=== PATIENT | male | born 1965 | race Caucasian/White ===

== ENCOUNTER → 2018-02-22 07:24 | Outpatient (CLI) | payer BC ==
[~2018-02-22] VITALS: Ht 175.3 cm; Wt 104.5 kg
--- NOTE | ~2018-02-22 | HEMODYNAMI ---
PATIENT:JONO YUNG MEDICAL RECORD: [id number] : 63 LOCATION:[facility] ADMISSION DATE: 02/22/18 Generatedon:02/22/20189:53 Patient name: JONO YUNG Patient #: [id number] SSN: : 1 Date of study: 02/22/2018 Page: Of Hemodynamic Procedure Report Patient Data Patient Demographics Procedure consent was obtained First Name: JONO Gender: Male Last Name: DILSHAD : 1965 [facility] Initial: CHANG Age: 52 year(s) Patient #: [id number] Race: Additional ID: [id number] Contact details [address]: [address] [place] [address] State: [place] City: [place] Zip code: [address] Past Medical History Allergies: No known allergies Admission Admission Data Admission Date: 02/22/2018 Admission Time: 7:24 Lab Results Lab Result Date: 02/22/2018 Lab Result Time: 0:00 Biochemistry Name Units Result Min Max BUN mg/dl 27 --(----)-* 7 18 Creatinine mg/dl 1.5 --(----)-* 0.6 1.3 CBC Name Units Result Min Max Hemoglobin g/dl 11.5 *-(----)-- 13.5 17.5 Procedure Procedure Types Cath Procedure Diagnostic Procedure [facility] w/Coronaries Procedure Description Procedure Date Procedure Date: 02/22/2018 Procedure Start Time: 9:46 Procedure End Time: 9:52 Procedure Staff Name Function William Montalvo RN Bindery Leadperson Stephanie Quigley RT Monitor Michael Rodriguez RN Nurse Chito Benjamin MD Performing Physician Hever Jackson RT Scrub Procedure Data Cath Procedure Fluoroscopy Diagnostic fluoroscopy Total fluoroscopy Time: 1 time: 1 min min Diagnostic fluoroscopy Total fluoroscopy dose: 558 dose: 558 mGy mGy Contrast Material Contrast Material Type Amount (ml) Isovue 300 49 Entry Location Entry Primary Successful Side Size Upsize Upsize Entry Closure Rubio ccessful Closure Location (Fr) 1 (Fr) 2 (Fr) Remarks Device Remarks Radial Right 6 Fr Mechanical artery Short Compression Estimated blood loss: 5 ml Diagnostic catheters Device Type Used For End Catheter Placement DIAGNOSTIC [place] 110cm 5 Procedure Fr catheter ([id number]) Procedure Medications Medication Administration Route Dosage 0.9% NaCl I.V. 100 ml/hr Oxygen etCO2 Nasal cannula 2 l/min Heparin Flush Bag added to field 2 bags (1000units/500ml NS) Lidocaine 2% added to field 20 Radial Cocktail added to field 1 syringe (Verapomil 2mg/Nitro 400mcg/Heparin 1500units) Versed I.V. 2 mg Fentanyl I.V. 100 mcg Versed I.V. 1 mg Hemodynamics Rest HGB: 11.5 (g/dl) Heart Rate: 71 (bpm) Snapshots Pre Cath Intra NCS Post Cath Vital Signs Time Heart Resp SPO2 etCO2 NIBP Rhythm Pain Sedation Rate (ipm) (%) (mmHg) (mmHg) Status Level (bpm) 9:41:02 70 14 94 0 134/74(98) NSR 0 (11) 10(A) , No pain 9:45:47 67 15 88 0.7 119/67(84) NSR 0 (11) 10(A) , No pain 9:50:28 68 12 96 44.4 102/52(73) NSR 0 (11) 10(A) , No pain Medications Time Medication Route Dose Verified Delivered Reason Notes Ef fectiveness by by 9:25:04 0.9% NaCl I.V. 100 Michael Michael Per ml/hr Lorigan Lorigan physician RN RN 9:25:16 Oxygen etCO2 2 l/min Michael Michael Per Nasal Lorigan Lorigan physician cannula RN RN 9:25:33 Heparin Flush added 2 bags Michael Michael used for Bag to Lorigan Lorigan procedure (1000units/500ml field RN RN NS) 9:25:46 Lidocaine 2% added 20ml Michael Michael for local to vial Lorigan Lorigan anesthetic field RN RN 9:28:02 Radial Cocktail added 1 Michael Michael used for (Verapomil to syringe Lorigan Lorigan procedure 2mg/Nitro field RN RN 400mcg/Heparin 1500units) 9:42:07 Versed I.V. 2 mg Michael Michael for Lorigan Lorigan sedation RN RN 9:42:20 Fentanyl I.V. 100 mcg Michael Michael for Lorigan Lorigan sedation RN RN 9:46:29 Versed I.V. 1 mg Michael Michael for Lorigan Lorigan sedation RN it applications manager Log Time Note 9:09:21 William Montalvo RN sent for patient. Start room use. 9:09:22 Time tracking: Regular hours (M-F 7:00 - 5:00) 9:09:27 Plan of Care:Hemodynamics will remain stable., Cardiac rhythm will remain stable., Comfort level will be maintained., Respiratory function will remain adequate., Patient/ family verbilizes understanding of procedure., Procedure tolerated without complication., Recovers from procedure without complications.. 9:09:29 Signed procedure consent form obtained from patient. 9:09:46 H&P Date Dictated: 02/20/2018 Within 30 days and on chart., H&P Addendum completed by physician on day of procedure. (MUST COMPLETE FOR ALL OUTPATIENTS). 9:09:54 Patient allergic to No known allergies 9:12:44 Patient received from Pre/Post Procedure Room to CCL 1 Alert and oriented. Tansferred to table in Supine position. 9:12:46 Warm blankets applied, and margarito hugger turned on for patient comfort. 9:12:47 Correct patient and procedure confirmed by team. 9:12:53 ECG and BP/O2 sat monitors applied to patient. 9:24:27 Vital chart was started 9:24:28 Baseline sample Acquired. 9:24:31 Rhythm: sinus rhythm 9:24:32 Full Disclosure recording started 9:24:32 Pre-procedure instructions explained to patient. 9:24:33 Pre-op teaching completed and patient verbalized understanding. 9:24:34 Family in patients room. 9:24:35 Patient NPO since Midnight. 9:24:36 Is the patient allergic to Iodine/contrast media? No. 9:24:39 Is patient on blood thinner?No 9:24:40 Patient diabetic? Yes. 9:24:41 If diabetic: On Metformin? Yes 9:24:44 If on Metformin: Last Dose? 02/20/2018 9:24:50 Previous problem with sedation/anesthesia? No ? 9:24:51 Snore? Yes 9:24:52 Sleep apnea? No 9:24:53 Deviated septum? No 9:24:54 Opens mouth fully? Yes 9:24:54 Sticks out tongue? Yes 9:24:56 Airway obstruction? No ? 9:24:58 Dentures? No ? 9:25:00 Modified Nolan's test Ulnar < 7 seconds 9:25:03 Patient pain scale 0/10 ?. 9:25:04 0.9% NaCl 100 ml/hr I.V. was administered by Michael Rodriguez RN; Per physician; 9:25:16 Oxygen 2 l/min etCO2 Nasal cannula was administered by Michael Rodriguez RN; Per physician; 9:25:21 IV patent on arrival in left hand with 0.9% NaCl at [facility]. 9:25:25 Lab results completed and on chart. 9:25:33 Heparin Flush Bag (1000units/500ml NS) 2 bags added to field was administered by Michael Rodriguez RN; used for procedure; 9:25:44 Right Radial & Right Groin area was prepped with chlora-prep and draped in sterile fashion 9:25:45 Alarms reviewed by R. N. 9:25:45 Sharps counted by scrub and verified by R.N. 9:25:46 Lidocaine 2% 20ml vial added to field was administered by Michael Rodriguez RN; for local anesthetic; 9:25:55 Use device set Radial Dx or PCI 9:25:59 ACIST Syringe (31095) opened to sterile field. 9:26:00 Bag Decanter () opened to sterile field. 9:26:01 ACIST Manifold (19019) opened to sterile field. 9:26:02 ACIST Hand Control (45962) opened to sterile field. 9:26:16 Tegaderm 4 x 4 (1626W) opened to sterile field. 9:26:20 Medline Cath Pack ([id number]) opened to sterile field. 9:26:20 DIAGNOSTIC WIRE .035 260cm J wire (581020) opened to sterile field. 9:26:21 MBrace Wrist Support ([id number]) opened to sterile field. 9:26:24 SHEATH 6Fr Prelude Radial ([id number]) opened to sterile field. 9:28:02 Radial Cocktail (Verapomil 2mg/Nitro 400mcg/Heparin 1500units) 1 syringe added to field was administered by Michael Rodriguez RN; used for procedure; ::30 Lab Result : Creatinine 1.5 mg/dl :: Lab Result : BUN 27 mg/dl :: Lab Result : Hemoglobin 11.5 g/dl 9:30:16 Zero performed for pressure channel P1 9:34:58 Zero performed for pressure channel P1 9:35:05 Zero performed for pressure channel P1 ::57 --------ALL STOP TIME OUT------ ::57 Final Timeout: patient, procedure, and site verified with staff and physician. All members of the team are in agreement. 9:41:00 Right Radial & Right Groin site verified by team. 9:41:05 Physical assessment completed. ASA score P 2 - A patient with mild systemic disease as per Chito Benjamin MD. 9:41:08 Sedation plan: IV Moderate Sedation Medication:Versed, Fentanyl 9:42:07 Versed 2 mg I.V. was administered by Michael Rodriguez RN; for sedation; 9:42:20 Fentanyl 100 mcg I.V. was administered by Michael Rodriguez RN; for sedation; 9:45:42 Procedure started. 9:46:29 Versed 1 mg I.V. was administered by Michael Rodriguez RN; for sedation; 9:46:31 Local anesthetic to right radial artery with Lidocaine 2% by Chito Benjamin MD.INITIAL ACCESS ONLY 9:47:31 A 6 Fr Short sheath was inserted into the Right Radial artery 9:47:38 A DIAGNOSTIC [place] 110cm 5 Fr catheter (308132) was advanced over the wire and used for Procedure. 9:47:43 LV gram done using PAUL 9:47:46 Injector settings: Ml/sec: 7, Volume: 15, 9:47:56 EF : 55 % 9:48:37 LCA angiography performed. 9:49:31 RCA angiography performed. 9:49:33 Catheter removed. 9:49:47 Procedure ended.(Physican Out) 9:49:56 TR BAND Standard ([id number]) opened to sterile field. 9:50:06 Sheath removed intact; hemostasis achieved with Mechanical Compression to the Right Radial artery. 9:50:49 Fluoroscopy time 01.00 minutes. :50:56 Fluoroscopy dose: 558 mGy 9:50:56 Flurop Dose total: 558 9:51:00 Contrast amount:Isovue 300 49ml. 9:51:02 Sharps counted by scrub and verified by R.N. 9:51:47 Post procedure rhythm: unchanged. 9:51:49 Estimated blood loss: 5 ml 9:51:50 Post procedure instruction explained to patient.Patient verbalizes understanding. 9:51:51 Patient needs reinforcement of post procedure teaching. 9:52:19 TR band inflated with 10cc of air. 9:52:26 Post-procedure physical assessment completed. ASA score P 2 - A patient with mild systemic disease as per Chito Benjamin MD. 9:52:30 Procedure and supply charges have been captured, reviewed, submitted and are correct. 9:52:38 Vital chart was stopped 9:52:38 See physician's report for complete and final results. 9:52:40 Report given to Pre/Post Procedure Room. 9:52:43 Patient transfered to Pre/Post Procedure Room with Bed. 9:52:45 Procedure ended. 9:52:45 Full Disclosure recording stopped 9:52:48 End room use (Document Last) Device Usage Item Name Manufacture Quantity Catalog Number Hospital Part Current M inimal Lot# / Charge Number Stock Stock Serial# Code ACIST Syringe Acist 1 18034 701447 057103 076041 2 0 (84502) Medical Systems Inc Bag Decanter Microtek 1 2001S 870397 28461 119341 5 (2001S) Medical Inc. ACIST Manifold Acist 1 36574 150286 346272 763257 5 (95113) Medical Systems Inc ACIST Hand Acist 1 21193 287364 756148 137887 5 Control (69779) Medical Systems Inc Tegaderm 4 x 4 3M 1 1626W 201838 715863 085840 5 (1626W) Medline Cath Cardinal 1 [id number] 854181 54861 973174 5 Pack Health ([id number]) DIAGNOSTIC WIRE St Audi 1 901084 590235 216388 467222 3 0 .035 260cm J wire (337438) MBrace Wrist Advanced 1 140-0250-00 273838 96476 266875 5 Support Vascular ([id number]) Dynamics SHEATH 6Fr Merit 1 [id number] 426413 953331 932995 5 Prelude Radial Medical ([id number]) DIAGNOSTIC Terumo 1 40-2165 195949 497672 620248 5 [place] 110cm 5 Fr catheter (731660) TR BAND Terumo 1 [id number] 192397 049983 741284 4 0 Standard ([id number]) Signature Audit [place] Stage Time Signature Unsigned Intra-Procedure 02/22/2018 Stephanie Quigley 9:53:32 AM RT(R) Signatures Monitor : Stephanie Quigley Signature : RT Date : Time : [place] [id number] [facility] [place] [address]
--- NOTE | ~2018-02-22 | OP ---
PATIENT NAME: JONO YUNG MEDICAL RECORD: [id number] :63 LOCATION:D.CAT ADMISSION DATE: SURGEON: SHANELLE PIERCE MD DATE OF OPERATION: 02/22/2018 PROCEDURES: 1. Left heart catheterization. 2. Selective coronary angiography. 3. Left ventriculogram. INDICATION: Chest pain compatible with angina. PROCEDURE IN DETAIL: After informed consent was obtained and after a detailed description of risks, benefits as well as alternative therapies, the patient elected to proceed with angiogram and heart catheterization. The right radial area was prepped and draped in normal sterile fashion. Right radial artery was cannulated via modified Seldinger technique with placement of 5-Urdu sheath. All catheters exchanged through this sheath. FINDINGS: Left ventriculogram was performed in standard 30-degree PAUL view, reveals good cardiac wall motion throughout all segments. Overall ejection fraction estimated at 55% to 60%. SELECTIVE CORONARY ANGIOGRAPHY: Left main, left anterior descending, left circumflex, and right coronary artery are all smooth-walled vessels with no angiographic evidence of coronary artery disease. OVERALL IMPRESSION: 1. No angiographic evidence of coronary artery disease. 2. Normal left heart pressures. 3. Normal left ventricular systolic function. Chest pain is noncardiac in etiology. No further cardiac workup needs to be ascertained. TRANSINT:[id number] Voice Confirmation ID: [id number] DOCUMENT ID: [id number] SHANELLE PIERCE MD at 1713 CC: [id number] DICTATION DATE: 02/22/18 0953 GOLF CART ASSEMBLER: 02/22/18 1057 DEP CLI 02/22/[address] [address]
[~2018-02-22 07:24] MED LIST: BAYER CHEWABLE81 MG PO; GLUCOPHAGE500 MG PO; GLUCOVANCE 5/501 TAB PO; LISINOPRIL10 MG PO; LOMOTIL TABLET1 TAB PO; LOPERAMIDE HCL2 MG PO; PLAVIX75 MG PO
[2018-02-22 07:51] LABS: BASOPHILS 0.3 % (0-2); EOSINOPHILS 8.8 % (0-7); HEMATOCRIT 35.1 % (42.0-54.0); HEMOGLOBIN 11.5 g/dL (13.5-17.5); IMMATURE GRANULOCYTES 0.3 % (0-5); LYMPHOCYTES 30.6 % (15-50); MCH 27.7 pg (26.0-34.0); MCHC 32.8 g/dL (31.0-37.0); MCV 84.6 fL (80.0-100.0); MEAN PLATELET VOLUME 10.3 fL (7.4-10.4); MONOCYTES 12.2 % (2-11); NEUTROPHILS 47.8 % (40-80); PLATELET COUNT 167 10x3/uL (130-400); RBC 4.15 10x6/uL (4.20-6.10); RDW 13.4 % (11.5-14.5); WBC 5.9 10x3/uL (4.8-10.8)
[2018-02-22 07:53] VITALS: BP 158/86; Ht 175.3 cm; Wt 104.5 kg
[2018-02-22 08:07] LABS: CARBON DIOXIDE 31.6 mmol/L (21.0-32.0); CREATININE - SERUM 1.5 mg/dL (0.6-1.3); POTASSIUM - SERUM 4.6 mmol/L (3.5-5.1)
== END | disposition home or self-care (01) ==
LOC: D.CATH 07:24
PROVIDERS: Internal Medicine Interventional Cardiology
DX: R07.89 Other chest pain (principal)

== ENCOUNTER → 2018-06-10 11:34 | Outpatient (CLI) | payer BC ==
[2018-02-22 07:53] VITALS: BMI 34.0
[~2018-06-10 11:34] MED LIST changes: +CLARITIN 10 MG10 MG PO; +KEFLEX500 MG PO; +NEURONTIN 300300 MG PO
== END | disposition home or self-care (01) ==
LOC: D.LABREF 11:34
DX: L08.9 Local infection of the skin and subcutaneous tissue, unspecified (principal)

== ENCOUNTER 2018-06-17 11:17 | Observation (INO) | payer BC ==
[~2018-06-17] VITALS: Ht 175.3 cm; Wt 104.3 kg
--- NOTE | ~2018-06-17 | MORECARE ---
CASE MANAGEMENT DISCHARGE SUMMARY PATIENT: JONO YUNG UNIT: [id number] ADM DATE: 06/17/18 AGE: 53 : 63 SEX: M ROOM/BED: D.2228 AUTHOR: DEBORAH MCLEAN PHYSICIAN: REFERRING PHYSICIAN: BRIT KIM MD DATE OF SERVICE: 06/19/18 Discharge Plan Patient Name: JONO YUNG Facility: [facility]:[place] : 1965 Planned Disposition: Home Anticipated Discharge Date: Discharge Date: Expected LOS: Initial Reviewer: [email or web address] Initial Review Date: 06/19/2018 Generated: 06/19/18 3:59 pm Comments DCP- Discharge Planning Updated by [email or web address]: Taya Sears on 06/19/18 1:[address] Patient Name: JONO YUNG Admission Status: Urgent Accout number: [id number] Admission Date: 06-17-2018 : 1965 Admission Diagnosis:CELLULITIS OF UNSPECIFIED TOE Attending: BRIT KIM Current LOS: 2 Anticipated DC Date: Planned Disposition: Home Primary Insurance: [employer] OUT OF STATE Discharge Planning Comments: CM met with patient and to discuss discharge planning. He is going down now for his MRI. Verbal permission received to discuss discharge planning with his . He lives with his in a one story home. He is independent with all ADL's. His states he seldom drives anymore, but she drives him where he needs to go. States he has a walking boot to support his ankle, otherwise he does not have any DME. States at this time, she does not believe he needs any DME. States he does not have any outside community resources assisting in the home. I explained that if he needed IV antibiotics, he would need to either go to a rehab or home with home health when ready for discharge. states he would opt for home health. CM will continue to follow and assist with discharge planning/needs. Synthetic Resin Operator: Taya Sears DCPIA - Discharge Planning Initial Assessment Updated by [email or web address]: Taya Seras on 06/19/18 2:49 pm * Is the patient Alert and Oriented? Yes * How many steps to enter\exit or inside your home? 2/0 * PCP Dr. Calixto * Pharmacy [facility] on [address] * Preadmission Environment Home with Family * ADLs Independent * Equipment Other * Other Equipment Walking boot * List name and contact numbers for known caregivers / representatives who currently or will assist patient after discharge: Kathryn - [phone] * Verbal permission to speak to the caregivers and representatives has been obtained from the patient. Yes * Community resources currently utilized None * Additional services required to return to the preadmission environment? No * Can the patient safely return to the preadmission environment? Yes * Has this patient been hospitalized within the prior 30 days at any hospital? No Last DP export: 06/19/18 1:51 Patient Name: JONO YUNG Page 34983 at 1459 All edits/amendments must be made on the electronic document DICTATION DATE: 06/19/181458 EVENTS MANAGER: BLAZE 06/19/181458 RPT#: [id number] DC DATE: STATUS: ADM IN [facility] [address] [place] [address] END OF REPORT
--- NOTE | ~2018-06-17 | MORECARE ---
CASE MANAGEMENT DISCHARGE SUMMARY PATIENT: JONO YUNG UNIT: [id number] ADM DATE: 06/17/18 AGE: 53 : 63 SEX: M ROOM/BED: D.2228 AUTHOR: DEBORAH MCLEAN PHYSICIAN: REFERRING PHYSICIAN: BRIT KIM MD DATE OF SERVICE: 06/21/18 Discharge Plan Patient Name: JONO YUNG Facility: [facility]:[place] : 1965 Planned Disposition: Home Anticipated Discharge Date: Discharge Date: 06/20/2018 Expected LOS: Initial Reviewer: [email or web address] Initial Review Date: 06/19/2018 Generated: 06/21/18 4:05 pm Comments DCP- Discharge Planning Updated by [email or web address]: Taya Sears on 06/20/18 9:[address] Patient Name: JONO YUNG Encounter No: [id number] : 1965 Primary Insurance: [employer] OUT OF STATE Anticipated DC Date: Planned Disposition: Home External Planned Provider: : DCP follow-up note: Patient and family in agreement with discharge plan. No changes to plan. Case management will follow and assist as needed. Taya Renu DCP- Discharge Planning Updated by [email or web address]: Taya Sears on 06/19/18 1:[address] Patient Name: JONO YUNG Admission Status: Urgent Accout number: [id number] Admission Date: 06-17-2018 : 1965 Admission Diagnosis:CELLULITIS OF UNSPECIFIED TOE Attending: BRIT KIM Current LOS: 2 Anticipated DC Date: Planned Disposition: Home Primary Insurance: [employer] OUT OF STATE Discharge Planning Comments: CM met with patient and to discuss discharge planning. He is going down now for his MRI. Verbal permission received to discuss discharge planning with his . He lives with his in a one story home. He is independent with all ADL's. His states he seldom drives anymore, but she drives him where he needs to go. States he has a walking boot to support his ankle, otherwise he does not have any DME. States at this time, she does not believe he needs any DME. States he does not have any outside community resources assisting in the home. I explained that if he needed IV antibiotics, he would need to either go to a rehab or home with home health when ready for discharge. states he would opt for home health. CM will continue to follow and assist with discharge planning/needs. Account Resolution Specialist: Taya Renu DCPIA - Discharge Planning Initial Assessment Updated by [email or web address]: Taya Renu on 06/19/18 2:49 pm * Is the patient Alert and Oriented? Yes * How many steps to enter\exit or inside your home? 2/0 * PCP Dr. Calixto * Pharmacy [facility] on [address] * Preadmission Environment Home with Family * ADLs Independent * Equipment Other * Other Equipment Walking boot * List name and contact numbers for known caregivers / representatives who currently or will assist patient after discharge: Kathryn - [phone] * Verbal permission to speak to the caregivers and representatives has been obtained from the patient. Yes * Community resources currently utilized None * Additional services required to return to the preadmission environment? No * Can the patient safely return to the preadmission environment? Yes * Has this patient been hospitalized within the prior 30 days at any hospital? No Last DP export: 06/20/18 9:18 Patient Name: JONO YUNG Page 06900 at 1505 All edits/amendments must be made on the electronic document DICTATION DATE: 06/21/18 150 DRESS FITTER: BLAZE 06/21/18 1504 RPT#: [id number] DC DATE:06/20/18 STATUS: DIS IN [facility] [address] [place] [address] END OF REPORT
--- NOTE | ~2018-06-17 | MORECARE ---
CASE MANAGEMENT DISCHARGE SUMMARY PATIENT: JONO YUNG UNIT: [id number] ADM DATE: 06/17/18 AGE: 53 : 63 SEX: M ROOM/BED: D.2228 AUTHOR: DEBORAH MCLEAN PHYSICIAN: REFERRING PHYSICIAN: BRIT KIM MD DATE OF SERVICE: 06/20/18 Discharge Plan Patient Name: JONO YUNG Facility: [facility]:[place] : 1965 Planned Disposition: Home Anticipated Discharge Date: Discharge Date: 06/20/2018 Expected LOS: Initial Reviewer: [email or web address] Initial Review Date: 06/19/2018 Generated: 06/20/18 11:18 am Comments DCP- Discharge Planning Updated by [email or web address]: Taya Sears on 06/20/18 9:[address] Patient Name: JONO YUNG Encounter No: [id number] : 1965 Primary Insurance: [employer] OUT OF STATE Anticipated DC Date: Planned Disposition: Home External Planned Provider: : DCP follow-up note: Patient and family in agreement with discharge plan. No changes to plan. Case management will follow and assist as needed. Taya Sears DCP- Discharge Planning Updated by [email or web address]: Taya Sears on 06/19/18 1:[address] Patient Name: JONO YUNG Admission Status: Urgent Accout number: [id number] Admission Date: 06-17-2018 : 1965 Admission Diagnosis:CELLULITIS OF UNSPECIFIED TOE Attending: BRIT KIM Current LOS: 2 Anticipated DC Date: Planned Disposition: Home Primary Insurance: [employer] OUT OF STATE Discharge Planning Comments: CM met with patient and to discuss discharge planning. He is going down now for his MRI. Verbal permission received to discuss discharge planning with his . He lives with his in a one story home. He is independent with all ADL's. His states he seldom drives anymore, but she drives him where he needs to go. States he has a walking boot to support his ankle, otherwise he does not have any DME. States at this time, she does not believe he needs any DME. States he does not have any outside community resources assisting in the home. I explained that if he needed IV antibiotics, he would need to either go to a rehab or home with home health when ready for discharge. states he would opt for home health. CM will continue to follow and assist with discharge planning/needs. Client Technologies Specialist: Taya Renu DCPIA - Discharge Planning Initial Assessment Updated by [email or web address]: Taya Renu on 06/19/18 2:49 pm * Is the patient Alert and Oriented? Yes * How many steps to enter\exit or inside your home? 2/0 * PCP Dr. Calixto * Pharmacy [facility] on [address] * Preadmission Environment Home with Family * ADLs Independent * Equipment Other * Other Equipment Walking boot * List name and contact numbers for known caregivers / representatives who currently or will assist patient after discharge: Kathryn - [phone] * Verbal permission to speak to the caregivers and representatives has been obtained from the patient. Yes * Community resources currently utilized None * Additional services required to return to the preadmission environment? No * Can the patient safely return to the preadmission environment? Yes * Has this patient been hospitalized within the prior 30 days at any hospital? No Last DP export: 06/19/18 1:59 Patient Name: JONO YUNG Page 42544 at 1018 All edits/amendments must be made on the electronic document DICTATION DATE: 06/20/18 1018 METAL SOLDERER: BLAZE 06/20/18 1018 RPT#: [id number] DC DATE:06/20/18 STATUS: DIS IN [facility] [address] [place] [address] END OF REPORT
--- NOTE | ~2018-06-17 | MORECARE ---
CASE MANAGEMENT DISCHARGE SUMMARY PATIENT: JONO YUNG UNIT: [id number] ADM DATE: 06/17/18 AGE: 53 : 63 SEX: M ROOM/BED: D.2228 AUTHOR: DEBORAH MCLEAN PHYSICIAN: REFERRING PHYSICIAN: BRIT KIM MD DATE OF SERVICE: 06/19/18 Discharge Plan Patient Name: [facility]UN[facility] [facility] 1965 Planned Disposition: Home Anticipated Discharge Date: Discharge Date: Expected LOS: Initial Reviewer: [email or web address] Initial Review Date: 06/19/2018 Generated: 06/19/18 3:51 pm DCPIA - Discharge Planning Initial Assessment Updated by [email or web address]: Taya Sears on 06/19/18 2:49 pm * Is the patient Alert and Oriented? Yes * How many steps to enter\exit or inside your home? 2/0 * PCP Dr. Calixto * Pharmacy [facility] on [facility] * Preadmission Environment Home with Family * ADLs Independent * Equipment Other * Other Equipment Walking boot * List name and contact numbers for known caregivers / representatives who currently or will assist patient after discharge: Kathryn - [phone] * Verbal permission to speak to the caregivers and representatives has been obtained from the patient. Yes * Community resources currently utilized None * Additional services required to return to the preadmission environment? No * Can the patient safely return to the preadmission environment? Yes * Has this patient been hospitalized within the prior 30 days at any hospital? No Patient Name: JONO YUNG Page [id number] at 1451 All edits/amendments must be made on the electronic document DICTATION DATE: 06/19/18 145 [employer] FARM LABORER: BLAZE 06/19/18 145 RPT#: [id number] DC DATE: STATUS: ADM IN [facility] [address] [place] [address] END OF REPORT
[~2018-06-17 11:17] MED LIST changes: -CLARITIN 10 MG10 MG PO; -KEFLEX500 MG PO; -NEURONTIN 300300 MG PO
[2018-06-17] MEDS ORDERED: CLARITIN 10 MG10 MG PO (12:00)
[2018-06-17] MEDS ORDERED: NEURONTIN 300300 MG PO (12:02)
[2018-06-17 14:40] VITALS: BP 145/86; BMI 34.0
[2018-06-17 17:50] VITALS: BP 115/79; BP 164/84
[2018-06-17 21:04] VITALS: BP 111/57
[2018-06-18 00:18] VITALS: BP 127/68
[2018-06-18 04:29] VITALS: BP 124/64
[2018-06-18 08:10] VITALS: BP 169/99
[2018-06-18 12:45] VITALS: BP 159/93
[2018-06-18 15:15] VITALS: BMI 33.9
[2018-06-18 17:57] VITALS: BP 145/85
[2018-06-18 20:38] VITALS: Ht 175.3 cm; Wt 104.3 kg
[2018-06-18 21:23] VITALS: BP 138/84
[2018-06-19 05:52] VITALS: BP 127/75
[2018-06-19 06:12] LABS: BASOPHILS 0.3 % (0-2); HEMATOCRIT 35.8 % (42.0-54.0); HEMOGLOBIN 11.7 g/dL (13.5-17.5); IMMATURE GRANULOCYTES 0.1 % (0-5); MCH 27.5 pg (26.0-34.0); MCHC 32.7 g/dL (31.0-37.0); MEAN PLATELET VOLUME 10.6 fL (7.4-10.4); MONOCYTES 7.9 % (2-11); NEUTROPHILS 59.7 % (40-80); RBC 4.26 10x6/uL (4.20-6.10); RDW 13.4 % (11.5-14.5); WBC 6.7 10x3/uL (4.8-10.8)
[2018-06-19 06:19] LABS: PLATELET COUNT 205 10x3/uL (130-400)
[2018-06-19 06:36] LABS: ANION GAP 8.6 mmol/L (8-16); C-REACTIVE PROTEIN 0.7 mg/dL (0.0-0.9); CALCIUM 9.4 mg/dL (8.5-10.1); CARBON DIOXIDE 31.6 mmol/L (21.0-32.0); CREATININE - SERUM 1.1 mg/dL (0.6-1.3); POTASSIUM - SERUM 4.2 mmol/L (3.5-5.1)
[2018-06-19 08:35] VITALS: BP 139/88
[2018-06-19 09:35] LABS: ERYTHROCYTE SEDIMENTATION RATE 18 mm/hr (0-20)
[2018-06-19 13:22] VITALS: BP 137/85
[2018-06-19 22:38] VITALS: BP 133/84
[2018-06-20 01:05] VITALS: BP 129/79
[2018-06-20 06:35] VITALS: BP 148/93
[2018-06-20] MEDS ORDERED: KEFLEX500 MG PO (09:26)
== END 2018-06-20 10:11 | disposition home or self-care (01) ==
LOC: D.MS 11:17 → OBSVTIME 11:17 → D.MS 11:17 → D.SDCHOLD 11:17 → D.MS 11:23
PROVIDERS: Student in an Organized Health Care Education/Training Program
DX: E11.628 Type 2 diabetes mellitus with other skin complications (principal); L03.039 Cellulitis of unspecified toe

== ENCOUNTER 2019-08-11 17:20 | Observation (INO) | payer BC ==
[~2019-08-11] VITALS: Ht 152.4 cm; Wt 102.3 kg
--- NOTE | ~2019-08-11 | CN ---
PATIENT NAME:JONO LEON MEDICAL RECORD: [id number] : 63 LOCATION:D. D.2 ADMIT DATE: 08/11/19 ACCOUNT: [id number] CONSULTING PHYSICIAN: SHANELLE PIERCE MD REFERRING PHYSICIAN: GURDEEP GEORGE DO DATE OF CONSULTATION: 08/12/2019 CARDIOLOGY CONSULTATION ADMITTING DIAGNOSES: 1. Chest pain. 2. Hypertension. 3. Noninsulin-dependent diabetes. HISTORY OF PRESENT ILLNESS: Mr. Leon presents with chest pain, some atypical components, some typical components. He had 3 hours of a dull aching heavy sensation yesterday evening, then he had a sharp pain, it did not last very long. The sharp pain was more intense and what made him actually come in to the hospital. Troponin is normal. EKG is with no acute changes. He had a cardiac catheterization in February 2018 with absolutely clean coronaries with no coronary artery disease. PHYSICAL EXAMINATION: CONSTITUTIONAL/GENERAL APPEARANCE: Well nourished, well developed, appears stated age. EYES: Lids and conjunctivae noninjected. No discharge. No pallor. ENT: Lips within normal limit. No cyanosis. No pallor. NECK: Carotid arteries, bilateral normal upstroke. No bruits. No thrills. No jugular venous pressure or distention. CERVICAL LYMPH NODES: Nontender. Nonenlarged. THYROID: Not enlarged. No nodules. CARDIOVASCULAR: Precordial exam, nondisplaced. No heaves or pericardial thrills. Rate and rhythm, regular. Heart sounds, normal S1, normal S2. No S3, no gallop, no rub. Systolic murmur, not heard. Diastolic murmur, not heard. RESPIRATORY: Respiratory effort, unlabored. Normal curvature. No thoracic deformity. No chest wall tenderness. Percussion, resonant. Auscultation, clear. No wheezes, no rales, no rhonchi. ABDOMEN: Soft, nondistended, nontender. No abdominal pain, no vomiting and normal appetite. MUSCULOSKELETAL: No joint tenderness, normal gait, normal tone. SKIN: Warm and dry. OVERALL IMPRESSION: Chest pain. Cardiac catheterization a year and a half ago with absolutely clean vessels, likelihood of hemodynamically significant coronary artery disease at this time is very low. He has a normal troponin, normal EKG. His blood pressure was quite elevated upon arrival. We will treat him with Norvasc 5 mg a day. We will follow up in 2-3 weeks. If he continues to have chest pain, we will risk stratify with stress testing. TRANSINT:[id number] Voice Confirmation ID: [id number] DOCUMENT ID: [id number] CONSULT REPORT [id number] JONO LEON JEFFREY MD CC: [id number] DICTATION DATE: 08/12/19712 VENEER MATCHER: 08/12/19 07 ADM IN [place] [id number] [place] [id number]
[~2019-08-11 17:20] MED LIST changes: +CLARITIN 10 MG10 MG PO; +KEFLEX500 MG PO; +NEURONTIN 300300 MG PO
[2019-08-11] MEDS ORDERED: FARXIGA10 MG PO (17:26)
[2019-08-11] MEDS ORDERED: FUROSEMIDE20 MG PO (17:26)
[2019-08-11 17:50] LABS: BASOPHILS 0.3 % (0-2); EOSINOPHILS 4.8 % (0-7); HEMATOCRIT 38.7 % (42.0-54.0); HEMOGLOBIN 12.4 g/dL (13.5-17.5); IMMATURE GRANULOCYTES 0.1 % (0-5); LYMPHOCYTES 24.6 % (15-50); MCH 27.7 pg (26.0-34.0); MCV 86.6 fL (80.0-100.0); MEAN PLATELET VOLUME 10.5 fL (7.4-10.4); MONOCYTES 6.3 % (2-11); NEUTROPHILS 63.9 % (40-80); PLATELET COUNT 183 10x3/uL (130-400); RBC 4.47 10x6/uL (4.20-6.10); RDW 13.4 % (11.5-14.5)
[2019-08-11 18:14] LABS: ALBUMIN 3.5 g/dL (3.4-5.0); ALKALINE PHOSPHATASE 114 U/L (46-116); ALT (SGPT) 31 U/L (10-68); BILIRUBIN - TOTAL 0.33 mg/dL (0.2-1.3); CALCIUM 9.1 mg/dL (8.5-10.1); CHLORIDE - SERUM 100 mmol/L (98-107); CKMB 1.3 U/L (0.0-3.6); CREATINE KINASE 94 UL (21-232); CREATININE - SERUM 1.2 mg/dL (0.6-1.3); POTASSIUM - SERUM 4.6 mmol/L (3.5-5.1); PROTEIN - SERUM 7.1 g/dL (6.4-8.2); SODIUM 137 mmol/L (136-145); UREA NITROGEN 19 mg/dL (7-18); eGFR NON AFRICAN AMERICAN 67 mL/min (90-120)
[2019-08-11 18:15] LABS: CALC OSMOLALITY 292 mosm/kg (275-300); TROPONIN-I < 0.017 ng/mL (0.000-0.060)
[2019-08-11 18:16] LABS: GLUCOSE 408 mg/dL (74-106)
--- NOTE | 2019-08-11 18:33 | NUR ---
PT REPORTS HE TOOK DILAUDID THAT WAS NOT PRESCRIBED FOR HIM PRIOR TO COMING TO THE ED. PT WAS CAUTIONED NOT TO TAKE MEDS THAT ARE NOT PRESCRIBED FOR HIM. HE STATED, "I KNOW I'M NOT SUPPOSED TO DO THAT."
[2019-08-11 19:17] LABS: INR 0.88 (0.85-1.17); PROTIME 11.9 SECONDS (11.6-15.0)
[2019-08-11 19:57] LABS: APPEARANCE CLEAR (CLEAR); BILIRUBIN NEGATIVE (NEGATIVE); COLOR YELLOW (YELLOW); GLUCOSE 1000 mg/dL (NEGATIVE); KETONE NEGATIVE (NEGATIVE); NITRITE NEGATIVE (NEGATIVE); PROTEIN NEGATIVE (NEGATIVE); UROBILINOGEN NORMAL (NORMAL)
--- NOTE | 2019-08-11 20:34 | NUR ---
FSBS 274
--- NOTE | 2019-08-11 21:12 | NUR ---
PT REFUSED XRAY OF ANKLE BECAUSE HE HAD IT XRAYED LAST SUNDAY & IS SCHEDULED FOR SURGERY NEXT WEEK IN [place]
--- NOTE | 2019-08-11 21:26 | NUR ---
PATIENT ARRIVED FROM THE ER. PATIENT IS ALERT AND ORIENTED, RESTING COMFORTABLY IN BED. RESPIRATIONS ARE EVEN AND UNLABORED. NO S/S OF DISTRESS. NO C/O PAIN. PATIENT REFUSED X RAY OF LEFT LEG. PATIENT AND SPOUSE STATED THAT HE IS HAVING SURGERY IN [facility]. X RAY HAVE ALREADY BEEN COMPLETED AT ANOTHER FACILITY. PATIENT EATING [facility]. CALL LIGHT WITHIN REACH. WILL CPOC.
[2019-08-12 00:13] LABS: CREATINE KINASE 74 UL (21-232); TROPONIN-I 0.022 ng/mL (0.000-0.060)
[2019-08-12 00:35] VITALS: Ht 152.4 cm; Wt 102.3 kg
[2019-08-12 04:00] VITALS: BP 125/81
[2019-08-12 06:14] LABS: BASOPHILS 0.6 % (0-2); HEMOGLOBIN 10.9 g/dL (13.5-17.5); IMMATURE GRANULOCYTES 0.1 % (0-5); LYMPHOCYTES 31.9 % (15-50); MCHC 31.1 g/dL (31.0-37.0); MCV 86.8 fL (80.0-100.0); MEAN PLATELET VOLUME 10.6 fL (7.4-10.4); MONOCYTES 6.7 % (2-11); NEUTROPHILS 52.7 % (40-80); PLATELET COUNT 173 10x3/uL (130-400); RBC 4.03 10x6/uL (4.20-6.10); RDW 13.5 % (11.5-14.5); WBC 6.7 10x3/uL (4.8-10.8)
[2019-08-12 06:44] LABS: APTT 26.3 SECONDS (22.8-39.4); INR 0.98 (0.85-1.17); PROTIME 12.9 SECONDS (11.6-15.0)
[2019-08-12 06:58] LABS: CALC OSMOLALITY 289 mosm/kg (275-300); CALCIUM 8.3 mg/dL (8.5-10.1); CARBON DIOXIDE 31.2 mmol/L (21.0-32.0); CHLORIDE - SERUM 106 mmol/L (98-107); CKMB 0.9 U/L (0.0-3.6); CREATINE KINASE 65 UL (21-232); CREATININE - SERUM 1.1 mg/dL (0.6-1.3); GLUCOSE 242 mg/dL (74-106); MAGNESIUM - SERUM 1.8 mg/dL (1.8-2.4); PHOSPHOROUS 3.3 mg/dL (2.5-4.9); POTASSIUM - SERUM 4.4 mmol/L (3.5-5.1); PRO BNP 611 pg/mL (0-125); SODIUM 141 mmol/L (136-145); TROPONIN-I 0.018 ng/mL (0.000-0.060); UREA NITROGEN 14 mg/dL (7-18); eGFR NON AFRICAN AMERICAN 74 mL/min (90-120)
--- NOTE | 2019-08-12 07:56 | NUR ---
ASSESSMENT DONE. DENIES NEEDS
[2019-08-12 09:47] VITALS: BP 157/76
[2019-08-12] MEDS ORDERED: NORVASC5 MG PO (09:50)
--- NOTE | 2019-08-12 10:13 | NUR ---
UPON ADMIT, PATIENT HAS NOT HAD A FLU SHOT. WHEN QUESTIONED UPON DISCHARGE, HE REFUSED ONE.
--- NOTE | 2019-08-12 10:33 | NUR ---
DC GIVEN TO PT
--- NOTE | 2019-08-12 10:46 | NUR ---
DC HOME PER PERSONAL CAR
--- NOTE | 2019-08-13 08:20 | MORECARE ---
CASE MANAGEMENT DISCHARGE SUMMARY PATIENT: JONO YUNG UNIT: [id number] ADM DATE: 08/11/19 AGE: 54 : 63 SEX: M ROOM/BED: D.2122 AUTHOR: DEBORAH MCLEAN PHYSICIAN: REFERRING PHYSICIAN: GURDEEP GEORGE DO DATE OF SERVICE: 08/13/19 Discharge Plan Patient Name: JONO YUNG [facility] [facility] 1965 Planned Disposition: Home Anticipated Discharge Date: 08/12/19 Discharge Date: 08/12/2019 Expected LOS: 1 Initial Reviewer: [email or web address] Initial Review Date: 08/13/2019 Generated: 08/13/19 9:20 am Patient Name: JONO YUNG Page [id number] at 0820 All edits/amendments must be made on the electronic document DICTATION DATE: 08/13/19819 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
== END 2019-08-12 10:47 | disposition home or self-care (01) ==
LOC: D.ER 17:20 → D.M2 19:42 → OBSVTIME 19:54 → D.M2 08-12 10:47
PROVIDERS: Family Medicine; ADMIT Family Medicine; ATTEND Family Medicine
DX: R07.9 Chest pain, unspecified (principal); D64.9 Anemia, unspecified; E11.9 Type 2 diabetes mellitus without complications; I10 Essential (primary) hypertension; Z85.038 Personal history of other malignant neoplasm of large intestine; S82.892A Other fracture of left lower leg, initial encounter for closed fracture; X58.XXXA Exposure to other specified factors, initial encounter

== ENCOUNTER → 2020-01-16 14:32 | Outpatient (CLI) | payer BC ==
[~2020-01-16 14:32] MED LIST changes: +FARXIGA10 MG PO; +FUROSEMIDE20 MG PO; +NORVASC5 MG PO
== END | disposition home or self-care (01) ==
LOC: D.LABREF 14:32
PROVIDERS: ATTEND Family Medicine
DX: E11.621 Type 2 diabetes mellitus with foot ulcer (principal)